=== PATIENT | female | born 2000 | race Caucasian/White ===

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

== ENCOUNTER 2024-01-19 14:46 | Emergency (ER) | payer OTHER ==
[~2024-01-19] VITALS: Ht 152.4 cm; Wt 54.5 kg
[2024-01-19 14:53] VITALS: TEMP 97.9
[2024-01-19] MEDS ORDERED: Lido/EPI/Tetrac Gel 3 ML SYRINGE TOP ONE (15:15)
[2024-01-19 16:32] VITALS: BP 116/70; PULSE 61
== END 2024-01-19 16:32 | disposition home or self-care (01) ==
LOC: COL.ER 14:46
DX: S01.81XA Laceration without foreign body of other part of head, initial encounter (principal); W22.8XXA Striking against or struck by other objects, initial encounter; Y93.43 Activity, gymnastics; Y92.39 Other specified sports and athletic area as the place of occurrence of the external cause